=== PATIENT | female | born 2000 ===

== ENCOUNTER 2022-01-31 14:40 | Inpatient (IN) ==
[~2022-01-31 14:40] MED LIST: Buffered Lidocaine 1% SYRIN 1 ml INTRADERM ONE
[2022-01-31] MEDS ORDERED: Nalbuphine 10 MG/ML 1 ML VIAL IV PRN (17:02)
[2022-01-31] MEDS ORDERED: Lactated Ringers 1000 ml BAG 1,000 ML IV ONE ×2 (17:02→23:05)
[2022-01-31] MEDS ORDERED: Promethazine INJ(RESTRICTED) 25 MG/ML 1 ml VIAL IV PRN (17:02)
[2022-01-31] MEDS ORDERED: Oxytocin in LR 20,000 MILLI.UNIT/1,000 ML BAG IV SCH (17:15)
[2022-01-31 17:53] LABS: ABS Eosinophils 0.1 10^3/ul (0-0.6); ABS Lymphocytes 1.9 10^3/ul (1.0-4.8); ABS Monocytes 0.9 10^3/ul (0-0.8); ABS Neutrophils 5.4 10^3/ul (1.5-7.7); Eosinophil % 1.4 %; Hematocrit 33 % (35-47); Hemoglobin 11.3 g/dL (12.0-16.0); Lymphocyte % 22.5 %; Mean Corpuscular HGB Conc 34 g/dL (31-36); Mean Corpuscular Hemoglobin 31 pg (27-31); Mean Corpuscular Volume 91 fL (80-97); Mean Platelet Volume 9.1 fL (7.4-10.4); Platelet Count 176 10^3/uL (150-450); Red Blood Count 3.65 10^6 /uL (3.70-4.87); Red Cell Distribution Width 14 % (10-15); White Blood Count 8.2 10^3/uL (3.5-10.8)
[2022-01-31 17:58] LABS: Urine Benzodiazepine Screen None Detected (None Detect); Urine Cannabinoids Screen Presumptive Positive (None Detect); Urine Opiates Screen None Detected (None Detect)
[2022-01-31] MEDS ORDERED: Lactated Ringers 1000 ml BAG 1,000 ML IV SCH ×3 (18:00→23:45)
[2022-01-31] MEDS ORDERED: Lidocaine 1% VIAL 10 MG/ML VIAL 30 ML ONE (21:52)
[2022-01-31] MEDS ORDERED: EPINEPHrine SULFITE FREE 1 MG/ML ONE (21:52)
[2022-01-31] MEDS ORDERED: OBEPIDURAL (200 ML) 200 ML EPIDURAL ONE (21:55)
[2022-01-31] MEDS ORDERED: Lidocaine 2% PF 10 ML AMP (OR) ONE (22:50)
[2022-01-31] MEDS ORDERED: Lactated Ringers 1000 ml BAG 500 ML IV PRN ×2 (23:05)
[2022-01-31] MEDS ORDERED: Phenylephrine 40 mcg/mL 10mL (400mcg) SYRINGE IV PUSH PRN ×2 (23:05)
[2022-01-31] MEDS ORDERED: Sodium Citrate/Citric Acid LIQ 15 ML UDC PO PRN (23:05)
[2022-01-31 23:40] LABS: Urine Appearance Clear; Urine Bilirubin Negative (Negative); Urine Blood Negative (Negative); Urine Color Yellow; Urine Glucose Negative (Negative); Urine Ketones Negative (Negative); Urine Nitrite Negative (Negative); Urine Protein Negative (Negative); Urine Specific Gravity 1.014 (1.002-1.030); Urine Urobilinogen Negative (Negative)
[2022-01-31] MEDS ORDERED: OBEPIDURAL (200 ML) 200 ML EPIDURAL SCH (23:45)
[2022-02-01] MEDS ORDERED: Dibucaine 1% OINT 28.35 GM TUBE PR PRN (02:26)
[2022-02-01] MEDS ORDERED: Glycerin ADULT 2.4 gm SUPP PR PRN (02:26)
[2022-02-01] MEDS ORDERED: Witch Hazel PAD JAR TOPICAL PRN (02:26)
[2022-02-01] MEDS ORDERED: Oxytocin in LR 20,000 MILLI.UNIT/1,000 ML BAG IV SCH (02:30)
[2022-02-02 07:11] LABS: ABS Basophils 0.1 10^3/ul (0-0.2); ABS Eosinophils 0.2 10^3/ul (0-0.6); ABS Lymphocytes 2.4 10^3/ul (1.0-4.8); ABS Monocytes 0.8 10^3/ul (0-0.8); ABS Neutrophils 5.9 10^3/ul (1.5-7.7); Eosinophil % 2.5 %; Hematocrit 29 % (35-47); Hemoglobin 9.6 g/dL (12.0-16.0); Lymphocyte % 25.3 %; Mean Corpuscular HGB Conc 33 g/dL (31-36); Mean Corpuscular Hemoglobin 31 pg (27-31); Mean Corpuscular Volume 92 fL (80-97); Mean Platelet Volume 8.3 fL (7.4-10.4); Platelet Count 151 10^3/uL (150-450); Red Blood Count 3.15 10^6 /uL (3.70-4.87); Red Cell Distribution Width 14 % (10-15); White Blood Count 9.4 10^3/uL (3.5-10.8)
[2022-02-04 08:24] VITALS: BP 126/77
== END 2022-02-04 17:30 | disposition home or self-care (01) | DRG 560 ==
LOC: MCHOBOUT 14:40 → MCHOB 17:03
PROVIDERS: ADMIT Midwife; ATTEND Midwife